=== PATIENT | male | born 1960 | race Caucasian/White ===

== ENCOUNTER 2016-07-02 15:12 | Emergency (ER) | payer MEDICARE, OTHER ==
[2016-07-02 17:00] VITALS: TEMP 98.3; O2SAT 95
[2016-07-02] MEDS ORDERED: TETRACAINE HCL 0.5% 4 ML BTTL ONE (17:00)
[2016-07-02] MEDS ORDERED: GENTAMICIN OPTH SOL 0.3% 5ML BOTTLE ONE (17:00)
--- NOTE | 2016-07-02 18:44 | ED.PDOC ---
History of Present Illness - General Chief Complaint: Eye Problems Stated Complaint: left eye discomfort, tearing Time Seen by Provider: 07/02/16 17:25 Source: patient Exam Limitations: no limitations - History of Present Illness Initial Comments: Patient presents with left eye pain. He was doing woodwork yesterday and says he was wearing safety goggles but today he has a foreign body sensation. He says his vision is affected because of the excess tears. No previous injury to the area. No other complaints. No headache. Timing/Duration: 24 hours Severity: moderate Improving Factors: nothing Worsening Factors: nothing Associated Symptoms: denies symptoms Review of Systems - Review of Systems EENTM: States: see HPI Respiratory: States: no symptoms reported Cardiology: States: no symptoms reported Gastrointestinal/Abdominal: States: no symptoms reported Genitourinary: States: no symptoms reported Musculoskeletal: States: no symptoms reported Skin: States: no symptoms reported Neurological: States: no symptoms reported Endocrine: States: no symptoms reported Hematologic/Lymphatic: States: no symptoms reported Physical Exam - Physical Exam General Appearance: Alert Eye Exam: left other - injected left sclera. Wood's lamp with fluorescein stain showed a foreign body embedded in the 7 oclock position of the left iris. Ears, Nose, Throat: normal ENT inspection Neck: non-tender, full range of motion, supple Respiratory: lungs clear Cardiovascular/Chest: regular rate, rhythm Gastrointestinal/Abdominal: normal bowel sounds, non tender, soft Progress - Progress Progress: 07/02/16 18:46 Ophthalmic drill was used to remove some of the foreign body. However, there was still a significant amount remaining and it was embedded to deep for me to feel comofortable to drill any further. Patient provided with gentamycin eyedrops and a follow up appointment with [facility] in the morning. Departure - Departure Clinical Impression: Foreign body in eye Disposition: Discharge to Home or Self Care Condition: Good Departure Forms: ED Discharge - Pt. Copy, Patient Portal Self Enrollment Diet: resume usual diet Activity: increase activity as tolerated Additional Instructions: May use ibuprofen and cold compresses for pain relief. Follow up with optometry in the morning at 8 am. Gentamycin eyedrops provided to use. 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
[2016-07-02 19:06] VITALS: BP 163/107
== END 2016-07-02 19:04 | disposition home or self-care (01) ==
LOC: ER 15:12
DX: T15.82XA Foreign body in other and multiple parts of external eye, left eye, initial encounter (principal); X58.XXXA Exposure to other specified factors, initial encounter